=== PATIENT | female | born 1940 | race Caucasian/White ===

== ENCOUNTER → 2016-11-08 | Outpatient (CLI) | payer MEDICARE, BC ==
[~2016-11-08] MED LIST: ASPIRIN81 M2 PO; CULTURELLE CAP1 EACH PO; FERROUS SULFATE PO; MEDROL4 MG PO; OCUFLOX10 ML OP; OMEPRAZOLE40 M1 PO; PRED FORTE1 ML OP; PROLENSA1.6 ML OP; SIMVASTATIN40 MG PO; WOMEN'S DAILY1 EACH PO
--- NOTE | ~2016-11-08 | MR17 ---
[facility] A Service of [facility] / [facility] RADIOLOGY TEXT RESULTS PATIENT: ROYCE CAMPOS LOCATION: [facility] : 38 UNIT #: [id number] AGE: [address]: Barber Luo II, MD SEX: F ORDER DR: [id number] [facility] [address] [place], [place] [address] [id number] O MR#: [id number] Acc #: [id number] NAME: ROYCE CAMPOS : 1940 SEX: F STUDY DATE/TIME: 11/08/2016 18:25 UNIT: [facility] ROOM: STUDY DESCRIPTION: MR Brain WWo Contrast Attending Physician: Barber Luo II., M.D. Referring Physician: Barber Luo II., M.D. Ordering Physician: Barber Luo II., M.D. Primary Care Physician: Girish Tellez M.D. MRI CENTER REPORT This report is preliminary unless electronic signature is present. EXAM Brain MR with and without contrast date of study 11/08/2016 COMPARISON Prior brain MRI 11/03/2010. HISTORY Short term memory loss and word finding difficulty since the wintertime. FINDINGS There is no MR evidence of acute ischemia or other restricted diffusion. There is volume loss but no hydrocephalus or extraaxial fluid collection. Extensive white matter changes, fairly confluent, are seen and show mild progression since the study of 2010. Normal flow voids are seen in the cerebral vessels. Post-contrast images show no evidence of mass or abnormal enhancement. There is evidence of intracranial hemorrhage. IMPRESSION Advanced white matter change and volume loss, with apparent progression since October 2010. However, there is no hemorrhage, hydrocephalus, mass or acute ischemia or other acute abnormality. Dictated by... Hiram Childs M.D. THIS IS AN ELECTRONICALLY VERIFIED REPORT Hiram Childs M.D. at 11/09/2016 3:57 PM IRAM/tarik TD: 11/09/2016 13:37 [facility] A Service of [facility] RADIOLOGY TEXT RESULTS PATIENT: ROYCE CAMPOS [facility] UNIT #: [id number] AGE: [address]: Barber Luo II, MD SEX: F ORDER DR: NOHELIA #: [id number] MRI CENTER REPORT Page 1 of 1 COPY
[2016-11-08 18:20] LABS: POC - GFR >60.0 mL/min (>60)
== END | disposition home or self-care (01) ==
LOC: CMRI 11-01 19:00
PROVIDERS: Psychiatry & Neurology Neurology
DX: R41.3 Other amnesia (principal); R93.8 Abnormal findings on diagnostic imaging of other specified body structures
CPT/HCPCS: 70553; 82565; A9577